=== PATIENT | female | born 1940 | race Caucasian/White ===

== ENCOUNTER 2019-08-31 15:40 | Inpatient (IN) ==
[2019-08-31 16:11] LABS: Basophils # 0.1 K/mcL (0.0-0.2); Basophils % 0.7 %; Eosinophils # 0.1 K/mcL (0.0-0.6); Eosinophils % 0.9 %; Hemoglobin 16.2 g/dL (11.5-15.4); Immature Granulocytes % 0.4 % (0-4); Lymphocytes # 4.8 K/mcL (0.6-4.6); Mean Corpuscular HGB Conc 34.5 g/dL (31.6-35.5); Mean Corpuscular Hemoglobin 31.3 pg (28.0-33.3); Mean Corpuscular Volume 90.9 fL (83.0-100.0); Mean Platelet Volume 9.6 fL (9.4-12.4); Monocytes # 0.7 K/mcL (0.0-1.3); Monocytes % 6.1 %; Neutrophils # 6.5 K/mcL (1.6-8.9); Platelet Count 283 K/mcL (140-400); Red Blood Count 5.17 M/mcL (3.82-4.97); Red Cell Distribution Width 12.4 % (11.5-14.5); Segmented Neutrophils % 52.9 %; White Blood Count 12.2 K/mcL (4.3-11.1)
[2019-08-31 16:17] LABS: INR 1.2; Prothrombin Time 13.4 Seconds (9.4-12.1)
[2019-08-31 16:20] LABS: Activated Partial Thrombo Time 42.5 Seconds (26.0-36.0)
[2019-08-31 16:25] LABS: Albumin 4.4 g/dL (3.5-5.7); Albumin/Globulin Ratio 1.1 (1.1-2.2); BUN/Creatinine Ratio 19 (6-26); Bilirubin,Indirect 0.2 mg/dL (0.0-1.0); Bilirubin,Total 0.2 mg/dL (0.3-1.0); Blood Urea Nitrogen 32 mg/dL (8-23); Calcium 9.8 mg/dL (8.6-10.3); Carbon Dioxide 25 mEq/L (23-29); Chloride 99 mEq/L (98-107); Glucose 140 mg/dL (70-105); Osmolality,Calculated 291 (280-300); Potassium 3.9 mEq/L (3.5-5.1); Sodium 136 mEq/L (136-145); Total Protein 8.4 g/dL (6.4-8.9); eGFR For African Americans 35 (> 60); eGFR For Non-African Americans 29 (> 60)
[2019-08-31 16:29] LABS: Troponin I < 0.03 ng/mL (< 0.04)
[2019-08-31] MEDS ORDERED: Furosemide 40 MG/4 ML VIAL IVP ONE (16:38)
[2019-08-31] MEDS ORDERED: Mag Hydrox/Al Hydrox/Simeth 30 ML UDC PO PRN (17:36)
[2019-08-31] MEDS ORDERED: Ondansetron 4 MG/2 ML VIAL IVP PRN (17:36)
[2019-08-31] MEDS ORDERED: MOM Conc 10 ML UD.LIQ PO PRN (17:36)
[2019-08-31] MEDS ORDERED: Naloxone 0.4 MG/ML INJ IVP PRN (17:36)
[2019-08-31] MEDS ORDERED: Fluticasone Propionate Nasal 50 MCG/SPRAY BOTTLE NS PRN (17:46)
[2019-08-31] MEDS ORDERED: Nitroglycerin 0.4 MG TAB.SUBL SL PRN (17:46)
[2019-08-31] MEDS: *HR* Rivaroxaban 15 MG TABLET PO SCH (19:45)
[2019-08-31] MEDS: Mirtazapine 15 MG TABLET PO SCH (21:12)
[2019-08-31] MEDS: ALPRAZolam 1 MG TABLET PO PRN (21:12)
[2019-09-01 06:44] LABS: Basophils # 0.1 K/mcL (0.0-0.2); Basophils % 0.8 %; Eosinophils # 0.1 K/mcL (0.0-0.6); Eosinophils % 1.3 %; Hematocrit 47.3 % (35.3-44.9); Hemoglobin 16.2 g/dL (11.5-15.4); Immature Granulocytes % 0.3 % (0-4); Lymphocytes # 4.3 K/mcL (0.6-4.6); Lymphocytes % 44.6 %; Mean Corpuscular HGB Conc 34.2 g/dL (31.6-35.5); Mean Corpuscular Volume 90.4 fL (83.0-100.0); Mean Platelet Volume 9.6 fL (9.4-12.4); Monocytes # 0.7 K/mcL (0.0-1.3); Monocytes % 7.3 %; Neutrophils # 4.4 K/mcL (1.6-8.9); Platelet Count 253 K/mcL (140-400); Red Blood Count 5.23 M/mcL (3.82-4.97); Red Cell Distribution Width 12.3 % (11.5-14.5); Segmented Neutrophils % 45.7 %; White Blood Count 9.7 K/mcL (4.3-11.1)
[2019-09-01 07:03] LABS: Calcium 9.7 mg/dL (8.6-10.3); Potassium 3.4 mEq/L (3.5-5.1)
[2019-09-01] MEDS ORDERED: Furosemide 40 MG/4 ML VIAL IVP SCH (09:00)
[2019-09-01] MEDS: Diltiazem CD (24hr) 180 MG CAPSULE PO SCH (09:12)
[2019-09-01] MEDS: Loratadine 10 MG TABLET PO SCH (09:13)
[2019-09-01] MEDS: Furosemide 20 MG/2 ML VIAL IVP SCH ×2 (09:18→16:49)
[2019-09-01] MEDS ORDERED: 0.9 % Sodium Chloride 500 ML IVC ONE (09:42)
[2019-09-01] MEDS: ALPRAZolam 1 MG TABLET PO PRN ×2 (15:02→21:47)
[2019-09-01] MEDS: *HR* Rivaroxaban 15 MG TABLET PO SCH (16:49)
[2019-09-01] MEDS: Mirtazapine 15 MG TABLET PO SCH (21:48)
[2019-09-02 07:38] LABS: Hematocrit 50.2 % (35.3-44.9); Hemoglobin 17.2 g/dL (11.5-15.4); Mean Corpuscular HGB Conc 34.3 g/dL (31.6-35.5); Mean Corpuscular Hemoglobin 30.9 pg (28.0-33.3); Mean Corpuscular Volume 90.3 fL (83.0-100.0); Mean Platelet Volume 9.6 fL (9.4-12.4); Platelet Count 285 K/mcL (140-400); Red Blood Count 5.56 M/mcL (3.82-4.97); Red Cell Distribution Width 12.4 % (11.5-14.5); White Blood Count 11.7 K/mcL (4.3-11.1)
[2019-09-02 07:57] LABS: Calcium 9.7 mg/dL (8.6-10.3); Potassium 3.8 mEq/L (3.5-5.1)
[2019-09-02] MEDS: Furosemide 20 MG/2 ML VIAL IVP SCH (08:08)
[2019-09-02] MEDS: Loratadine 10 MG TABLET PO SCH (08:09)
[2019-09-02] MEDS: Diltiazem CD (24hr) 180 MG CAPSULE PO SCH (08:09)
[2019-09-02] MEDS ORDERED: 0.9 % Sodium Chloride 1,000 ML IVC SCH (12:30)
[2019-09-02] MEDS: ALPRAZolam 1 MG TABLET PO PRN ×2 (14:07→20:35)
[2019-09-02] MEDS: *HR* Rivaroxaban 15 MG TABLET PO SCH (15:49)
[2019-09-02 16:24] LABS: Bilirubin,Urine Negative (Negative); Blood,Urine Negative (Negative); Clarity,Urine Clear (Clear); Color,Urine Yellow (Yellow); Glucose,Urine (UA) Normal (Normal); Ketones,Urine Negative (Negative); Leukocyte Esterase,Urine Moderate (Negative); Nitrite,Urine Negative (Negative); Protein,Urine Negative (Neg-Trace); Specific Gravity,Urine 1.015 (1.010-1.025); Urobilinogen,Urine Normal (Normal)
[2019-09-02 17:36] LABS: Bacteria,Urine Few per hpf (None-Few); Hyaline Casts,Urine Few per lpf (None-Few); RBC,Urine 0-3 per hpf (0-3); Squamous Epithelial Cell,Urine Few per lpf (None-Few); Transitional Epi Cells,Urine Few per hpf (None-Few)
[2019-09-02] MEDS: Mirtazapine 15 MG TABLET PO SCH (20:28)
[2019-09-02] MEDS: Nystatin POWDER 30 GM BOTTLE TP SCH (20:35)
[2019-09-02 21:08] LABS: Sodium, Urine 57.7 mEq/L
[2019-09-02] MEDS ORDERED: Melatonin 3 MG TABLET PO PRN (23:11)
[2019-09-03 08:07] LABS: Hematocrit 45.3 % (35.3-44.9); Hemoglobin 15.6 g/dL (11.5-15.4); Mean Corpuscular HGB Conc 34.4 g/dL (31.6-35.5); Mean Corpuscular Hemoglobin 31.3 pg (28.0-33.3); Mean Platelet Volume 9.8 fL (9.4-12.4); Platelet Count 248 K/mcL (140-400); Red Blood Count 4.98 M/mcL (3.82-4.97); Red Cell Distribution Width 12.5 % (11.5-14.5)
[2019-09-03] MEDS: Loratadine 10 MG TABLET PO SCH (08:08)
[2019-09-03] MEDS: Diltiazem CD (24hr) 180 MG CAPSULE PO SCH (08:08)
[2019-09-03] MEDS: Nystatin POWDER 30 GM BOTTLE TP SCH (08:09)
[2019-09-03 08:29] LABS: Calcium 9.2 mg/dL (8.6-10.3); Potassium 4.2 mEq/L (3.5-5.1)
[2019-09-03] MEDS: ALPRAZolam 1 MG TABLET PO PRN (08:30)
[2019-09-03] MEDS ORDERED: Sulfamethoxazole/Trimeth SS 1 TAB PO SCH (09:00)
[2019-09-03] MEDS ORDERED: cephALEXin 500 MG CAPSULE PO SCH (09:00)
[2019-09-03 14:18] VITALS: BP 104/69
[2019-09-03] MEDS: *HR* Rivaroxaban 15 MG TABLET PO SCH (16:14)
[2019-09-03] MEDS ORDERED: FLU Vac QV 19-20 (6Month+)/PF 0.5 ML SYRINGE IM ONE (16:42)
== END 2019-09-03 17:21 | disposition home or self-care (01) | DRG 291 ==
LOC: EMEROOPIK 15:40 → INPPIK 15:40
PROVIDERS: ADMIT Family Medicine; ATTEND Family Medicine